=== PATIENT | male | born 1965 | race Caucasian/White ===

== ENCOUNTER 2016-12-25 22:02 | Emergency (ER) | payer OTHER ==
[~2016-12-25] VITALS: Ht 180.3 cm; Wt 107.0 kg
[~2016-12-25 22:02] MED LIST: ASPI81TA82 PO; BENI40TA30 PO; DOXE75CA PO; LOMO PO; METO50CR PO; NORV10TA PO; OMEP20TA39 PO; TIZA4 PO; TRAM50 PO; XANA1TAB6 PO
[2016-12-25 22:16] VITALS: BP 112/71; PULSE 102; RESP 18; TEMP 98.7; O2SAT 94
[2016-12-25] MEDS ORDERED: XANA1TAB2 PO (22:16)
[2016-12-25] MEDS ORDERED: ASPI81CH37 CHEW (22:16)
[2016-12-25] MEDS ORDERED: BENI40TA3 PO (22:16)
[2016-12-25] MEDS ORDERED: TETANUS/DIPHTHERIA TOXOID ADULT 0.5 ML VIAL IM ONE (22:45)
[2016-12-25] MEDS ORDERED: TIZA4TAB PO (22:45)
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
[2016-12-25 23:07] LABS: HEMATOCRIT 41.8 % (39.0-51.0); MEAN CELL VOLUME 98.5 FL (80.0-100.0); MEAN CORPUSCULAR HEMOGLOBIN 33.8 PG (27.0-34.0); MEAN CORPUSCULAR HGB CONC 34.4 % (32.0-36.0); PLATELET COUNT 243 TH/MM3 (150-450); RED BLOOD COUNT 4.24 MIL/MM3 (4.50-5.90); RED CELL DISTRIBUTION WIDTH 13.4 % (11.6-17.2); WHITE BLOOD COUNT 7.7 TH/MM3 (4.0-11.0)
[2016-12-25 23:13] LABS: HEMO FLAGS AUTO DIFF
[2016-12-25 23:17] LABS: POTASSIUM 4.6 MEQ/L (3.5-5.1)
[2016-12-25 23:18] LABS: BICARBONATE 27.6 MEQ/L (21.0-32.0)
[2016-12-25 23:21] LABS: APTT (PATIENT) 28.5 SEC (24.3-30.1); PROTHROMBIN TIME - PATIENT 11.4 SEC (9.8-11.6)
[2016-12-25 23:26] LABS: BANDS 2 % (0-6); NEUTROPHIL # MANUAL DIFF 5.4 TH/MM3 (1.8-7.7); POLYS (SEG NEUTROPHILS) 68 % (16-70); WBC DIFF SAMPLE 100
[2016-12-25 23:27] LABS: PLATELET ESTIMATE SMEAR NORMAL (NORMAL); PLATELET MORPHOLOGY NORMAL (NORMAL); SCAN/DIFF FINAL DIFF MANUAL
[2016-12-25 23:36] VITALS: BP 94/64; PULSE 84; RESP 18; O2SAT 94
[2016-12-26] MEDS ORDERED: ACETAMINOPHEN 325 MG TAB PO ONE
[2016-12-26 00:05] VITALS: BP 104/65; PULSE 78; RESP 18; O2SAT 96
[2016-12-26] MEDS ORDERED: LIDOCAINE HCL 1% 50 ML VIAL INFIL ONE (00:30)
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
[2016-12-26 01:00] VITALS: BP 108/64; PULSE 78; RESP 18; O2SAT 97
[2016-12-26] MEDS ORDERED: SODIUM CHLOR 0.9% 1000 ML INJ 1,000 ML IV ONE (01:00)
[2016-12-26] MEDS ORDERED: KETOROLAC TROMETHAMINE 30 MG/ML (IVP) VIAL IV PUSH ONE (01:15)
[2016-12-26] MEDS ORDERED: HYDROmorphone HCL PF 1 MG/ML VIAL IV PUSH ONE ×2 (01:30→01:45)
[2016-12-26] MEDS ORDERED: AUGM875T PO (01:57)
[2016-12-26] MEDS ORDERED: ACET500T36 PO (01:57)
[2016-12-26] MEDS ORDERED: CALCIUM GLUCONATE 500 MG TAB PO ONE (02:00)
[2016-12-26 02:24] VITALS: RESP 18
[2016-12-26 02:41] VITALS: BP 110/66
[2017-05-05] MEDS ORDERED: METO50TA PO (14:15)
[2017-05-05] MEDS ORDERED: HYDR12.57 PO (14:44)
[2017-05-12] MEDS ORDERED: METO25TA3 PO (14:16)
== END 2016-12-26 02:45 | disposition home or self-care (01) ==
LOC: PHED 22:02
DX: R51 Headache (principal); I10 Essential (primary) hypertension; M54.2 Cervicalgia; I48.91 Unspecified atrial fibrillation; K21.9 Gastro-esophageal reflux disease without esophagitis; Z87.442 Personal history of urinary calculi; Z87.891 Personal history of nicotine dependence; Y08.02XA Assault by strike by baseball bat, initial encounter
CPT/HCPCS: 12013; 70450; 70486; 72125; 80048; 85007; 85027; 85610; 85730; 86850; 86900; 86901; 96361; 96374; 99284; J1170; J7030

== ENCOUNTER 2017-01-01 10:02 | Emergency (ER) | payer SELFPAY ==
[~2017-01-01] VITALS: Ht 180.3 cm; Wt 107.6 kg
[~2017-01-01 10:02] MED LIST changes: +ACET500T36 PO; +ASPI81CH37 CHEW; -ASPI81TA82 PO; +AUGM875T PO; +BENI40TA3 PO; -BENI40TA30 PO; -DOXE75CA PO; -LOMO PO; -METO50CR PO; -NORV10TA PO; -OMEP20TA39 PO; -TIZA4 PO; +TIZA4TAB PO; -TRAM50 PO; +XANA1TAB2 PO; -XANA1TAB6 PO
[2017-01-01 10:06] VITALS: BP 130/83; PULSE 85; RESP 16; TEMP 98; O2SAT 93
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
[2017-05-05] MEDS ORDERED: METO50TA PO (14:15)
[2017-05-05] MEDS ORDERED: HYDR12.57 PO (14:44)
[2017-05-12] MEDS ORDERED: METO25TA3 PO (14:16)
== END 2017-01-01 10:35 | disposition home or self-care (01) ==
LOC: PHED 10:02
DX: Z48.02 Encounter for removal of sutures (principal)
CPT/HCPCS: 99281

== ENCOUNTER → 2017-05-07 | Outpatient (CLI) | payer OTHER ==
[~2017-05-07] MED LIST changes: -ACET500T36 PO; -AUGM875T PO; +HYDR12.57 PO; +METO25TA3 PO; +METO50TA PO; -TIZA4TAB PO
[2017-05-07 12:29] LABS: HEMATOCRIT 44.5 % (39.0-51.0); MEAN CELL VOLUME 93.2 FL (80.0-100.0); MEAN CORPUSCULAR HEMOGLOBIN 31.9 PG (27.0-34.0); MEAN CORPUSCULAR HGB CONC 34.2 % (32.0-36.0); PLATELET COUNT 210 TH/MM3 (150-450); RED BLOOD COUNT 4.77 MIL/MM3 (4.50-5.90); RED CELL DISTRIBUTION WIDTH 13.2 % (11.6-17.2); REVIEW FLAG FINAL; WHITE BLOOD COUNT 7.1 TH/MM3 (4.0-11.0)
[2017-05-07 12:30] LABS: BLOOD, URINE NEG (NEG); GLUCOSE,URINE NEG (NEG); KETONE, URINE NEG (NEG); NITRITE,URINE NEG (NEG); URINE COLOR LIGHT-YELLOW (YELLW/STRAW)
[2017-05-07 12:33] LABS: COMMENT (UR) CULT NOT INDICATED; CULTURE IF INDICATED CULT NOT INDICATED
[2017-05-07 12:45] LABS: ALT (GPT) 41 U/L (12-78); ANION GAP 5 MEQ/L (5-15); AST (GOT) 37 U/L (15-37); BICARBONATE 29.6 MEQ/L (21.0-32.0); BLOOD UREA NITROGEN 8 MG/DL (7-18); CHLORIDE 104 MEQ/L (98-107); GLOMERULAR FILTRATION RATE 69 ML/MIN (>89); GLUCOSE,FASTING 115 MG/DL (74-99); POTASSIUM 4.2 MEQ/L (3.5-5.1); SODIUM (NA) 139 MEQ/L (136-145)
[2017-05-07 12:54] LABS: ALKALINE PHOSPHATASE 118 U/L (45-117); HDL CHOLESTEROL 35.8 MG/DL (40.0-60.0); LDL CHOLESTEROL 162 MG/DL (0-99); TOTAL BILIRUBIN ADULT 0.5 MG/DL (0.2-1.0)
== END ==
LOC: CLAB 11:58
PROVIDERS: ATTEND Nurse Practitioner Family
DX: I10 Essential (primary) hypertension (principal); R39.12 Poor urinary stream; E78.5 Hyperlipidemia, unspecified
CPT/HCPCS: 36415; 80053; 80061; 81001; 84153; 84443; 85027

== ENCOUNTER → 2017-05-14 | Outpatient (CLI) | payer OTHER ==
[~2017-05-14] MED LIST changes: -METO50TA PO
[2017-05-14 16:07] LABS: HEMOGLOBIN A1a 1.1 %; HEMOGLOBIN A1b 0.9 %; HEMOGLOBIN F 0.9 %; HEMOGLOBIN P3 3.3 %
== END ==
LOC: CLAB 12:25
PROVIDERS: ATTEND Nurse Practitioner Family
DX: R73.09 Other abnormal glucose (principal)
CPT/HCPCS: 36415; 83036

== ENCOUNTER → 2017-07-06 | Outpatient (CLI) | payer OTHER ==
[2017-07-06 14:07] LABS: HDL CHOLESTEROL 25.3 MG/DL (40.0-60.0)
== END ==
LOC: CLAB 12:40
PROVIDERS: ATTEND Nurse Practitioner Family
DX: E78.5 Hyperlipidemia, unspecified (principal)
CPT/HCPCS: 36415; 80061

== ENCOUNTER 2017-11-17 17:28 | Emergency (ER) | payer OTHER ==
[~2017-11-17] VITALS: Ht 177.8 cm; Wt 102.0 kg
[~2017-11-17 17:28] MED LIST changes: -ASPI81CH37 CHEW; +ASPI81CH6 CHEW; -BENI40TA3 PO; -HYDR12.57 PO
[2017-11-17 17:35] VITALS: BP 148/80; PULSE 104; RESP 17; TEMP 99.1; O2SAT 94
[2017-11-17] MEDS ORDERED: ACETAMINOPHEN/HYDROcodone 325 MG/5 MG TAB PO ONE (17:45)
[2017-11-17] MEDS ORDERED: DOXE75CA2 PO (17:51)
[2017-11-17] MEDS ORDERED: PRAV20TA2 PO (17:51)
[2017-11-17] MEDS ORDERED: OMEP40CA2 PO (17:51)
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
--- NOTE | 2017-11-17 18:51 | PD ---
HPI Chief Complaint: Fall Time Seen by Provider: 17:45 Travel History International Travel<30 days: No Contact w/Intl Traveler<30days: No Traveled to known affect area: No History of Present Illness HPI Patient is a 52-year-old male who comes in after she fell off a ladder twice. He was cutting a branch, and says that he fell down once under his back. He says he was determined to cut a branch from x-ray went back And fell again onto his back. He denies hitting his head. He has pain to his arm with a branch scratched him. We also complains of pain to his neck. He denies any other pain to his back. As he did not pass out. He was able to get up and walk after the falls. He denies dizziness, nausea, vomiting, blurred vision. He denies numbness or tingling of his extremities. He did not take anything for pain prior to coming in. PFSH Past Medical History Arthritis: No Asthma: No Atrial Fibrillation: Yes (hx) Autoimmune Disease: No Blood Disorders: No Anxiety: Yes Depression: No Heart Rhythm Problems: Yes (A FIB) Cancer: No Cardiac Catheterization: Yes Cardiovascular Problems: Yes High Cholesterol: Yes Chest Pain: Yes Congestive Heart Failure: No COPD: No Cerebrovascular Accident: No Diabetes: No Diminished Hearing: No Endocrine: Yes GERD: Yes Glaucoma: No Genitourinary: Yes Headaches: No Hepatitis: No Hiatal Hernia: Yes Hypertension: Yes Immune Disorder: No Kidney Stones: Yes Musculoskeletal: Yes Neurologic: No Psychiatric: Yes Reproductive: No Respiratory: No Immunizations Current: Yes Migraines: No Myocardial Infarction: No Pancreatitis: Yes Radiation Therapy: No Renal Failure: No Seizures: No Sickle Cell Disease: No Sleep Apnea: No Thyroid Disease: No Ulcer: Yes Past Surgical History Abdominal Surgery: No AICD: No Appendectomy: No Arteriovenous Shunt: No Cardiac Surgery: Yes (CARDIAC CATH.-10/28- NO INTERVENTION) Cholecystectomy: No Coronary Artery Bypass Graft: No Ear Surgery: No Endocrine Surgery: No Eye Surgery: No Genitourinary Surgery: No Gynecologic Surgery: No Insulin Pump: No Joint Replacement: No Oral Surgery: Yes (T & A) Pacemaker: No Thoracic Surgery: No Tonsillectomy: Yes Other Surgery: Yes Family History Family Myocardial Infarction: Yes (GRANDMOTHER) Social History Alcohol Use: Yes (SOCIALLY) Tobacco Use: Yes Substance Use: No Allergies-Medications (Allergen,Severity, Reaction): Coded Allergies: meperidine (Unverified Allergy, Severe, HIVES, 11/17/17) Reported Meds & Prescriptions Reported Meds & Active Scripts Active Metoprolol Tartrate 25 Mg Tab 25 Mg PO BID Reported Doxepin (Doxepin HCl) 75 Mg Cap 75 Mg PO HS Pravastatin 20 Mg Tab 20 Mg PO DAILY Omeprazole 40 Mg Cap 40 Mg PO DAILY Xanax (Alprazolam) 1 Mg Tab 1 Mg PO Q8H PRN Aspirin Low Dose (Aspirin) 81 Mg Chew 81 Mg CHEW DAILY Review of Systems Except as stated in HPI: all other systems reviewed are Neg General / Constitutional: No: Fever, Chills Eyes: No: Blurred Vision HENT: No: Headaches, Lightheadedness Cardiovascular: No: Chest Pain or Discomfort Respiratory: No: Shortness of Breath Gastrointestinal: No: Nausea, Vomiting Musculoskeletal: Positive: Pain Skin: No Rash, No Change in Pigmentation Neurologic: No: Weakness, Dizziness Physical Exam Narrative GENERAL: Awake and alert, in no acute distress. SKIN: Abrasions to left forearm. HEAD: Atraumatic. Normocephalic. EYES: Pupils equal and round. No scleral icterus. ENT: Mucous membranes pink and moist. NECK: Trachea midline. No JVD. Cervical collar in place. CARDIOVASCULAR: Regular rate and rhythm. No murmur appreciated. No chest wall tenderness. RESPIRATORY: No accessory muscle use. Clear to auscultation. Breath sounds equal bilaterally. GASTROINTESTINAL: Abdomen soft, non-tender, nondistended. MUSCULOSKELETAL: No obvious deformities. No clubbing. No cyanosis. No edema. No thoracic or lumbar tenderness. No tenderness to either arm or leg. No tenderness to the pelvis. NEUROLOGICAL: Awake and alert. No obvious cranial nerve deficits. Motor grossly within normal limits. Normal speech. PSYCHIATRIC: Appropriate mood and affect; insight and judgment normal. Data Data Last Documented VS Vital Signs Date Time Temp Pulse Resp B/P (MAP) Pulse Ox O2 Delivery O2 Flow Rate FiO2 11/17/17 17:35 99.1 104 17 148/80 (102) 94 Room Air Orders Orders Ct Brain W/O Iv Contrast(Rout) (11/17/17 ) Ct Cerv Spine W/O Contrast (11/17/17 ) Chest, Single Ap (11/17/17 ) Pelvis, Ap Only (Routine) (11/17/17 ) Acetamin-Hydrocod 325-5 Mg ([place] 5-325 (11/17/17 17:45) Tetanus/Diphtheria Tox Adult (Tetanus/Di (11/17/17 19:00) MDM Medical Decision Making Medical Screen Exam Complete: Yes Emergency Medical Condition: Yes Medical Record Reviewed: Yes Differential Diagnosis Cervical spine fracture versus cervical strain versus abrasion versus pelvic fracture Narrative Course Patient is a 52-year-old male who comes in after he fell off a ladder twice. He complains of neck pain. He has no neurologic symptoms. X-ray of the chest and pelvis performed shows no acute abnormalities. CT head and C-spine performed showed no acute abnormality. Patient given pain medicine. Tetanus updated. Patient advised to stay off ladders. Advised to take Tylenol or ibuprofen as needed for pain. Advised to return to the ED as needed for any worsening symptoms. Diagnosis Primary Impression: Fall Qualified Codes: W19.XXXA - Unspecified fall, initial encounter Patient Instructions: Fall Prevention (ED), General Instructions Additional Instructions: Stay off ladders. Take Tylenol or ibuprofen as needed for pain. Follow-up with your doctor. Return to the ED as needed for any worsening symptoms. Disposition: 01 DISCHARGE HOME Condition: Stable Cailin Gifford MD Nov 17, 2017 18:51
[2017-11-17] MEDS ORDERED: TETANUS/DIPHTHERIA TOXOID ADULT 0.5 ML VIAL IM ONE (19:00)
--- NOTE | 2017-11-17 19:10 | RADRPT ---
EXAM DATE/TIME: 11/17/2017 18:24 [facility] COMPARISON: CT FACIAL BONES W/O CONTRAST, December 25, 2016, 23:00. CT BRAIN W/O CONTRAST, December 25, 2016, 23 :00. INDICATIONS : Fell off of ladder. Head and neck pain. RADIATION DOSE: 62.82 CTDIvol (mGy) MEDICAL HISTORY : Hypertension. SURGICAL HISTORY : None. ENCOUNTER: Initial ACUITY: 1 day PAIN SCALE: 5/10 LOCATION: cranial TECHNIQUE: Multiple contiguous axial images were obtained of the head. Using automated exposure control and adj ustment of the mA and/or kV according to patient size, radiation dose was kept as low as reasonably a chievable to obtain optimal diagnostic quality images. DICOM format image data is available electro nically for review and comparison. FINDINGS: CEREBRUM: Moderate diffuse dural volume loss unexpected for patients age. The ventricles are normal for degree of atrophy. Stable small hypodensity in the right caudate. No evidence of midline shift, mass lesion, hemorrhage or acute infarction. No extra-axial fluid collections are seen. POSTERIOR FOSSA: The cerebellum and brainstem are intact. The 4th ventricle is midline. The cerebellopontine angle i s unremarkable. EXTRACRANIAL: The visualized portion of the orbits is intact. SKULL: The calvaria is intact. No evidence of skull fracture. CONCLUSION: 1. Moderate diffuse cerebral atrophy, more than expected for age. 2. Stable right caudate lacunar infarct. 3. No acute intracranial pneumonia. Tam Noyola MD on November 17, 2017 at 19:06 Board Certified Radiologist. This report was verified electronically.
--- NOTE | 2017-11-17 19:12 | RADRPT ---
EXAM DATE/TIME: 11/17/2017 18:24 [facility] COMPARISON: CT CERVICAL SPINE W/O CONTRAST, December 25, 2016, 23:00. INDICATIONS : Fell off of ladder. Head and neck pain. RADIATION DOSE: 26.67 CTDIvol (mGy) MEDICAL HISTORY : Hypertension. SURGICAL HISTORY : None. ENCOUNTER: Initial ACUITY: 1 day PAIN SCALE: 5/10 LOCATION: neck TECHNIQUE: Volumetric scanning of the cervical spine was performed. Multiplanar reconstructions in the sagittal, coronal and oblique axial planes were performed. Using automated exposure control and adjustment o f the mA and/or kV according to patient size, radiation dose was kept as low as reasonably achievable to obtain optimal diagnostic quality images. DICOM format image data is available electronically f or review and comparison. FINDINGS: Vertebral body heights are maintained. Osseous structures are intact without evidence for acute bony fracture. Dens is intact. Sagittal alignment is maintained. There is a normal C1-2 relationship. Face ts are normally aligned. There is no significant prevertebral soft tissue hematoma. Stable degenerati ve spondylosis of the cervical spine most prominently at C5-6 with disc space narrowing and posterior osteophyte complex. No significant cervical adenopathy or gross mass. The thyroid appears unremarkab le. Visualized lung apices are clear without pneumothorax. CONCLUSION: 1. No acute fracture or subluxation. 2. Stable degenerative spondylosis of the cervical spine most prominently at C5-6. Tam Noyola MD on November 17, 2017 at 19:08 Board Certified Radiologist. This report was verified electronically.
[2017-11-17 20:13] VITALS: BP 143/77
== END 2017-11-17 20:15 | disposition home or self-care (01) ==
LOC: PHED 17:28
DX: M54.2 Cervicalgia (principal); J98.11 Atelectasis; M47.9 Spondylosis, unspecified; I48.91 Unspecified atrial fibrillation; F41.9 Anxiety disorder, unspecified; E78.00 Pure hypercholesterolemia, unspecified; K21.9 Gastro-esophageal reflux disease without esophagitis; I10 Essential (primary) hypertension; Z87.19 Personal history of other diseases of the digestive system
CPT/HCPCS: 70450; 71010; 72125; 72170; 90471; 90714